=== PATIENT | male | born 1945 | race Two or more races ===

== ENCOUNTER 2017-03-29 07:13 | Day surgery (SDC) | payer MEDICARE ==
[~2017-03-29] VITALS: Ht 170.2 cm; Wt 79.0 kg
[2017-03-29 07:42] VITALS: BP 135/65
[2017-03-29] MEDS ORDERED: ARFO15VI INH (08:30)
[2017-03-29] MEDS ORDERED: CITA40TA5 PO (08:30)
[2017-03-29] MEDS ORDERED: HYDR12.58 PO (08:30)
[2017-03-29] MEDS ORDERED: TERA5CAP3 PO (08:30)
[2017-03-29] MEDS ORDERED: DICL50TA4 PO (08:30)
[2017-03-29] MEDS ORDERED: COMBIVENT (08:30)
[2017-03-29] MEDS ORDERED: LISI-170 PO (08:30)
[2017-03-29] MEDS ORDERED: DUTA0.5C PO (08:30)
[2017-03-29 08:51] LABS: BASOPHILS # (AUTO) 0.07 x10^3/uL (0-0.1); BASOPHILS % (AUTO) 1 % (0-1); EOSINOPHILS # (AUTO) 0.11 x10^3/uL (0-0.4); EOSINOPHILS % (AUTO) 1 % (1-7); LYMPHOCYTES # (AUTO) 1.39 x10^3/uL (1-3.4); LYMPHOCYTES % (AUTO) 16 % (22-44); MD NO; MEAN CORPUSCULAR HGB CONC 33.5 g/dL (33.2-36.2); MEAN CORPUSCULAR VOLUME 86.5 fL (81-97); MEAN PLATELET VOLUME 7.7 fL (7.4-10.4); MONOCYTES # (AUTO) 0.49 x10^3/uL (0.2-0.8); MONOCYTES % (AUTO) 6 % (2-9); NEUTROPHILS # (AUTO) 6.68 x10^3/uL (1.8-6.8); NEUTROPHILS % (AUTO) 76 % (42-75); PLATELET COUNT 222 x10^3/uL (130-400); RED BLOOD COUNT 5.32 x10^6/uL (4.38-5.82); RED CELL DISTRIBUTION WIDTH 14.9 % (9.4-14.8)
[2017-03-29] MEDS ORDERED: BUPIVACAINE LIPOSOME/PF INFIL ONE (09:00)
[2017-03-29 09:03] LABS: ALANINE AMINOTRANSFERASE 23 U/L (12-78); ALBUMIN 3.9 g/dL (3.4-5.0); ANION GAP 5 mmol/L (5-15); CHLORIDE 106 mmol/L (98-107); CREATININE 0.86 mg/dL (0.7-1.3)
[2017-03-29 09:06] LABS: ALKALINE PHOSPHATASE 92 U/L (45-117); BILIRUBIN,TOTAL 0.7 mg/dL (0.2-1.0); TOTAL PROTEIN 7.9 g/dL (6.4-8.2)
[2017-03-29] MEDS ORDERED: LIDOCAINE GEL 2%, 5ML ONE (09:12)
[2017-03-29] MEDS ORDERED: FENTANYL PF 100 MCG/2ML ONE ×3 (09:13→10:50)
[2017-03-29] MEDS ORDERED: DIAZEPAM 5 MG/ML, 2ML IVPush PRN (10:00)
[2017-03-29] MEDS ORDERED: ONDANSETRON 2MG/ML, 2ML IVPush PRN (10:00)
[2017-03-29] MEDS ORDERED: LABETALOL 5MG/ML, 20ML IV PRN (10:00)
[2017-03-29] MEDS ORDERED: ALBUTEROL/IPRATROPIUM 2.5MG/0.5MG, 3 ML NPPB PRN (10:00)
[2017-03-29] MEDS ORDERED: PROMETHAZINE 25 MG/ML, 1ML IV PRN (10:00)
[2017-03-29] MEDS ORDERED: ALBUTEROL SULFATE 2.5 MG/3 ML NPPB PRN (10:00)
[2017-03-29] MEDS ORDERED: ACETAMINOPHEN 325 MG TABLET PO PRN (10:00)
[2017-03-29] MEDS ORDERED: MIDAZOLAM 1 MG/ML, 2ML IV PRN (10:00)
[2017-03-29] MEDS ORDERED: PROMETHAZINE 12.5 MG SUPP PR PRN (10:00)
[2017-03-29] MEDS ORDERED: ONDANSETRON 2MG/ML, 2ML ONE (10:00)
[2017-03-29] MEDS ORDERED: DEXAMETHASONE 4 MG/ML, 1ML ONE (10:00)
[2017-03-29] MEDS ORDERED: hydrALAzine 20 MG/ML, 1ML IV PRN (10:00)
[2017-03-29] MEDS ORDERED: CEFAZOLIN 1,000 MG ONE (10:00)
[2017-03-29] MEDS ORDERED: PROPOFOL 10 MG/ML, 20ML ONE (10:00)
[2017-03-29] MEDS ORDERED: OXYcodone 5 MG/5 ML ORAL.SOL UDC ONE (10:50)
[2017-03-29] MEDS ORDERED: ACETAMINOPHEN 650 MG/20.3 ML UDC ONE (10:50)
[2017-03-29] MEDS: OXYcodone 5 MG/5 ML ORAL.SOL UDC PO PRN ×2 (10:50→11:20)
[2017-03-29] MEDS: FENTANYL PF 100 MCG/2ML IV PRN ×4 (10:54→11:10)
[2017-03-29] MEDS ORDERED: LACTATED RINGERS 1,000 ML IV SCH (11:22)
[2017-03-29] MEDS ORDERED: HYDROmorphone 2 MG/ML, 1ML ONE (11:22)
[2017-03-29] MEDS: HYDROmorphone 1 MG/ML, 1ML IV PRN ×2 (11:25→11:34)
== END 2017-03-29 14:15 ==
LOC: OR 07:13
PROVIDERS: ATTEND Surgery
DX: K64.8 Other hemorrhoids (principal); K64.4 Residual hemorrhoidal skin tags; K62.5 Hemorrhage of anus and rectum; I10 Essential (primary) hypertension; E78.5 Hyperlipidemia, unspecified; K21.9 Gastro-esophageal reflux disease without esophagitis
CPT/HCPCS: 36415; 46260; 80053; 85025; 88304; 93005; C9290; J1100; J1170; J2405; J2704; J3010; J7120; J0690